=== PATIENT | male | born 1980 | race Two or more races ===

== ENCOUNTER → 2023-05-23 | Emergency (ER) | payer OTHER ==
[~2023-05-23] VITALS: Ht 182.9 cm; Wt 99.8 kg
[~2023-05-23] MED LIST: ADDERALL 20 MG20 MG; COZAAR100 MG; WELLBUTRIN XL300 MG
== END | disposition left against medical advice (07) ==
LOC: ER 05:33
DX: Z53.21 Procedure and treatment not carried out due to patient leaving prior to being seen by health care provider (principal)